=== PATIENT | female | born 1955 | race Caucasian/White ===

== ENCOUNTER 2016-06-13 08:53 | Emergency (ER) | payer OTHER ==
[2016-06-13 09:19] VITALS: BP 139/68; PULSE 78; RESP 20; TEMP 98.3
--- NOTE | 2016-06-13 09:31 | ED ---
Skin/Abscess/FB HPI - General Source: patient, RN notes reviewed Mode of arrival: ambulatory Limitations: no limitations <Rob Nam - Last Filed: 06/13/16 09:31> <Vega Strickland - Last Filed: 06/13/16 17:08> - General Chief complaint: Skin/Abscess/Foreign Body Stated complaint: rash Time Seen by Provider: 06/13/16 09:23 - History of Present Illness Initial comments: 61-year-old female presents emergency Department with chief complaint of rash. Patient states started last few days. Patient states she has left leg, buttocks rash. Patient states is painful, sore. Patient states she's never had shingles. Patient states she is currently on chemotherapy for cancer. Patient states that she's had no new soaps or lotions or detergents. Patient states she's never had any like this in the past. Patient states that she initially thought she had impetigo. Patient admits to having chickenpox in the past. (Rob Nam) - Related Data Previous Rx's Medication Instructions Recorded Cyclobenzaprine [Flexeril] 10 mg PO Q8H PRN #0 tab 10/23/15 Docusate [Colace] 100 mg PO BID cap 10/23/15 Magnesium Hydroxide [Milk of 2,400 mg PO BID PRN #0 ml 10/23/15 Magnesia Concentrate] fentaNYL 25MCG/HR PATCH [Duragesic 1 patch TRANSDERM Q72H patch 10/23/15 25MCG/HR] HYDROcodone/APAP 7.5-325MG [[place] 1 tab PO Q6HR PRN #20 tab 06/13/16 7.5-325] valACYclovir HCL [Valtrex] 1,000 mg PO Q8HR #30 tab 06/13/16 Allergies Allergy/AdvReac Type Severity Reaction Status Date / Time Iodinated Contrast Media - Allergy Unknown Verified 06/13/16 09:19 Oral and Review of Systems ROS Other: All systems not noted in ROS Statement are negative. <Rob Nam - Last Filed: 06/13/16 09:31> ROS Other: All systems not noted in ROS Statement are negative. <Vega Strickland - Last Filed: 06/13/16 17:08> ROS Statement: Those systems with pertinent positive or pertinent negative responses have been documented in the HPI. 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 History of Any Multi-Drug Resistant Organisms: None Reported Past Surgical History: Section, Cholecystectomy Past Anesthesia/Blood Transfusion Reactions: No Reported Reaction Past Psychological History: Anxiety, Depression Smoking Status: Former smoker Past Alcohol Use History: Occasional Past Drug Use History: None Reported - Past Family History Father Family Medical History: Cancer <Rob Nam - Last Filed: 06/13/16 09:31> General Exam Limitations: no limitations General appearance: alert, in no apparent distress Head exam: Present: atraumatic, normocephalic, normal inspection Respiratory exam: Present: normal lung sounds bilaterally. Absent: respiratory distress, wheezes, rales, rhonchi, stridor Cardiovascular Exam: Present: regular rate, normal rhythm, normal heart sounds. Absent: systolic murmur, diastolic murmur, rubs, gallop, clicks Neurological exam: Present: alert, oriented X3, CN II-XII intact Skin exam: Present: warm, dry, intact, normal color, rash (Left buttocks, turning down the left leg there is erythematous vesicular rash noted) <Rob Nam - Last Filed: 06/13/16 09:31> Disposition Time of Disposition: 09:30 <Rob Nam - Last Filed: 06/13/16 09:31> <Vega Strickland - Last Filed: 06/13/16 17:08> Clinical Impression: Herpes zoster Disposition: HOME SELF-CARE Condition: Stable Instructions: Shingles (ED) Additional Instructions: Please return to the Emergency Department if symptoms worsen or any other concerns. Prescriptions: HYDROcodone/APAP 7.5-325MG [[place] 7.5-325] 1 tab PO Q6HR PRN #20 tab PRN Reason: Pain valACYclovir HCL [Valtrex] 1,000 mg PO Q8HR #30 tab Referrals: Brenden Willson MD [Primary Care Provider] - 1-2 days
== END 2016-06-13 09:55 | disposition home or self-care (01) ==
LOC: EC 08:53
DX: B02.9 Zoster without complications (principal); C80.1 Malignant (primary) neoplasm, unspecified; Z79.891 Long term (current) use of opiate analgesic; Z87.891 Personal history of nicotine dependence; Z91.041 Radiographic dye allergy status; Z79.899 Other long term (current) drug therapy
CPT/HCPCS: 99282

== ENCOUNTER → 2016-07-14 | Outpatient (CLI) | payer OTHER ==
--- NOTE | 2016-07-14 13:32 | CT ---
EXAMINATION TYPE: CT ChestAbdPelvis wo con DATE OF EXAM: 07/14/2016 1:16 PM COMPARISON: 04/21/2016 HISTORY: Follow-up lung carcinoma Unenhanced CT of the Chest, Abdomen and Pelvis Unenhanced CT of the chest ,abdomen and pelvis is performed. The lack of intravenous contrast limits evaluation of the solid and hollow viscera. Oral contrast: Yes CT Chest: LUNGS: Right infrahilar mass is unchanged in size and measures approximately 3.1 x 2.0 cm versus 3.1 x 1.9 cm previously. There is resultant endobronchial occlusion with right lower lobe volume loss and small pleural effusion essentially unchanged from prior examination. No new nodule or mass is apprec iated. The left lung remains clear. MEDIASTINUM: Thoracic aorta is of normal caliber. The heart is not enlarged. No evidence for media stinal mass or adenopathy. HILAR STRUCTURES: No evidence for mass. No hilar adenopathy is appreciated. OTHER: Pathologic compression fracture of T11 with bony retropulsion and central stenosis with cord c ompression difficult to exclude. Additional diffuse sclerotic bony metastases essentially unchanged f rom prior examination. CONTRAST CT ABDOMEN AND PELVIS: LIVER/GB: No calcified gallstones. No space occupying hepatic lesion. Biliary tree is of normal ca liber. PANCREAS: No inflammation. No distinct mass. SPLEEN: No splenic enlargement. No lesion seen. ADRENALS: No nodule. No thickening. KIDNEYS/BLADDER: No hydronephrosis. No nephrolithiasis. No disctinct renal mass. BOWEL: Normal appendix. Normal bowel caliber. No inflammation. GENITAL ORGANS: No gross abnormality. LYMPH NODES: No greater than 1cm abdominal or pelvic lymph nodes areappreciated. AORTA: No significant abnormality. OSSEOUS STRUCTURES: No significant abnormality is seen. OTHER: No significant additional abnormality is seen. IMPRESSION: 1. Essentially stable right infrahilar mass with postobstructive changes. 2. Stable sclerotic bony metastases.
== END ==
LOC: RADCTMAIN 12:50
PROVIDERS: ATTEND Internal Medicine Hematology & Oncology
DX: C34.91 Malignant neoplasm of unspecified part of right bronchus or lung (principal); C79.51 Secondary malignant neoplasm of bone
CPT/HCPCS: 71250; 74176

== ENCOUNTER → 2016-11-10 | Outpatient (CLI) | payer OTHER ==
--- NOTE | 2016-11-10 13:16 | CT ---
EXAMINATION TYPE: CT ChestAbdPelvis wo con DATE OF EXAM: 11/10/2016 COMPARISON: July 14, 2016 HISTORY: Lung Cancer CT DLP: 568.5mGycm Unenhanced CT of the Chest, Abdomen and Pelvis Unenhanced CT of the chest ,abdomen and pelvis is performed. The lack of intravenous contrast limits evaluation of the solid and hollow viscera. Oral contrast: Yes CT Chest: LUNGS: Right infrahilar soft tissue mass is again noted and measures approximately 3.6 x 2.7 cm versu s 3.1 x 2.0 cm previously. There is associated right lower lobe volume loss. Small pleural effusion i s identified. No new masses identified at this time. 3 mm pulmonary nodule within the right middle lo be appear new. New nodule right upper lobe measures 2 mm image 27. In the left lung now there are eleonora roximately 8 pulmonary nodules most of which appear to be new all measuring less than 6.5 mm. Metasta tic disease is not excluded. MEDIASTINUM: Thoracic aorta is of normal caliber. The heart is not enl arged. No evidence for mediastinal mass or adenopathy. HILAR STRUCTURES: Fullness of the right hilum is suspicious for adenopathy although the lack of contr ast limits evaluation. OTHER: No significant abnormality. CONTRAST CT ABDOMEN AND PELVIS: LIVER/GB: Cholecystectomy clips are in place. No space occupying hepatic lesion. Biliary tree is of n ormal caliber. PANCREAS: No inflammation. No distinct mass. SPLEEN: No splenic enlargement. No lesion seen. ADRENALS: No nodule. No thickening. KIDNEYS/BLADDER: No hydronephrosis. No nephrolithiasis. No disctinct renal mass. BOWEL: Normal appendix. Normal bowel caliber. No inflammation. GENITAL ORGANS: No gross abnormality. LYMPH NODES: No greater than 1cm abdominal or pelvic lymph nodes areappreciated. AORTA: No significant abnormality. OSSEOUS STRUCTURES: Stable scattered sclerotic metastatic lesions. Stable pathologic compression frac ture of T11. OTHER: No significant additional abnormality is seen. IMPRESSION: 1. Right infrahilar mass with postobstructive change appears slightly larger in the interval. 2. New pulmonary nodules suspicious for metastatic disease. 3. Stable left sclerotic metastatic disease.
== END | disposition home or self-care (01) ==
LOC: RADCTMAIN 12:28
PROVIDERS: ATTEND Internal Medicine Hematology & Oncology
DX: C34.2 Malignant neoplasm of middle lobe, bronchus or lung (principal); C79.51 Secondary malignant neoplasm of bone; Z91.041 Radiographic dye allergy status
CPT/HCPCS: 71250; 74176

== ENCOUNTER → 2017-01-13 | Outpatient (CLI) | payer OTHER ==
--- NOTE | 2017-01-13 08:56 | CT ---
EXAMINATION TYPE: CT ChestAbdPelvis wo con DATE OF EXAM: 01/13/2017 COMPARISON: Previous study dated 11/10/2016 HISTORY: Patient has no complaints at time of study. Follow up study for known lung cancer. CT DLP: 619.6 mGycm Automated exposure control for dose reduction was used. TECHNIQUE: Helical acquisition through the abdomen and pelvis was obtained without oral or intravenou s contrast. The data was formatted in the axial, coronal and sagittal projections. FINDINGS: There is an enlarging right-sided effusion. The patient's right infrahilar mass which previ ously measured 3.6 x 2.7 cm now measures 2.1 x 3.2 x 3.2 cm. This lesion abuts the pleura surface of the right hemidiaphragm. There is some postobstructive pneumonitis. There are stable pulmonary nodule s likely reflecting metastatic disease. Nodule adjacent to the left hilum which previously was measur ed at 4.9 mm today measures 4.4 mm no definite new nodules are seen.. Subpleural nodule in the latera l segment of the left upper lobe which previously measured 4.0 mm today measures 3.2 mm. There is no significant axillary or internal mammary lymph nodes. There are some shotty lymph nodes i n the pretracheal region and in the aortopulmonary window. No definite pathologically enlarged lymph nodes are seen. The heart is enlarged. There is no pericardial fluid. Within the abdomen, the liver is normal in size. No focal hepatic lesions are seen. The gallbladder i s been removed. The spleen is normal. Both adrenal glands appear normal. There is no evidence of hydronephrosis or nephrolithiasis. Limited views of the pancreas are normal. There is no significant retroperitoneal, iliac or inguinal adenopathy. The uterus and ovaries are unremarkable. The bladder is normal. There are scattered diverticula changes in the sigmoid colon. There is no radiographic evidence of di verticulitis. The appendix is not visualized. Small bowel loops are normal in caliber. There is no free fluid and no free air. There are multiple sclerotic metastases essentially unchanged from previous. There is partial collaps e of the T11 vertebral body and this may have progressed slightly. IMPRESSION: 1. SLIGHT IMPROVEMENT IN THE PATIENT'S RIGHT INFRAHILAR MASS. 2. SLIGHT DECREASE IN SIZE OF THE PATIENT'S KNOWN PULMONARY METASTASES. 3. STABLE OSSEOUS METASTASES. THE PATIENT'S COMPRESSION FRACTURE OF T11 MAY HAVE PROGRESSED SLIGHTLY. 4. WORSENING RIGHT-SIDED EFFUSION. 5. UNCOMPLICATED DIVERTICULOSIS OF THE SIGMOID COLON.
== END ==
LOC: RADCTMAIN 08:09
PROVIDERS: ATTEND Internal Medicine Hematology & Oncology
DX: C34.2 Malignant neoplasm of middle lobe, bronchus or lung (principal); C78.00 Secondary malignant neoplasm of unspecified lung; C79.51 Secondary malignant neoplasm of bone; J91.0 Malignant pleural effusion; K57.30 Diverticulosis of large intestine without perforation or abscess without bleeding
CPT/HCPCS: 71250; 74176

== ENCOUNTER 2017-01-26 07:52 | Day surgery (SDC) | payer OTHER ==
[2017-01-26 09:04] VITALS: BP 126/58; PULSE 68; RESP 20; TEMP 98.1
--- NOTE | 2017-01-26 10:42 | US ---
Discontinued thoracentesis HISTORY: Lung cancer, pleural effusion Exam correlated to prior CT 01/13/2017 Ultrasound images show only minimal pleural effusion. Following discussion with the patient, patient has elected not to undergo thoracentesis at this time.
== END 2017-01-26 09:30 | disposition home or self-care (01) ==
LOC: RADPROMAIN 07:52
PROVIDERS: ATTEND Internal Medicine Hematology & Oncology
DX: J90 Pleural effusion, not elsewhere classified (principal); C34.90 Malignant neoplasm of unspecified part of unspecified bronchus or lung; Z53.8 Procedure and treatment not carried out for other reasons
CPT/HCPCS: 36415; 76604

== ENCOUNTER → 2017-03-30 | Outpatient (CLI) | payer OTHER ==
--- NOTE | 2017-03-30 09:25 | CT ---
EXAMINATION TYPE: CT ChestAbdPelvis wo con DATE OF EXAM: 03/30/2017 COMPARISON: 01/13/2017 HISTORY: Follow up to lung CA CT DLP: 594.1 mGycm. Automated Exposure Control for Dose Reduction was Utilized. TECHNIQUE: CT scan of the thorax, abdomen and pelvis is performed without IV contrast. FINDINGS: LUNGS: There is a stable right-sided effusion. The patient's right infrahilar mass now measures 2.1 x 3.2 x 3.2 cm. And is stable This lesion abuts the pleura surface of the right hemidiaphragm. There is some postobstructive pneumonitis. There again noted to be multiple small pulmonary nodules the largest measuring approximately 4 mm lef t lower lobe lateral segment. There does appear to be some interval improvement in a couple of the no dules previously noted within the lingular segment of the left upper lobe posteriorly which are marke dly reduced in size and not definitively seen on today's exam. Subpleural nodularity in the left uppe r lobe is stable MEDIASTINUM: Assessment for adenopathy limited by the lack of contrast. OTHER: Multiple osseous lesions again noted with a compression fracture mid thoracic region which eleonora ears result in severe canal stenosis and compression thecal sac. Involvement of the rib cage again no fiona. Involvement of the sternum also noted. Involvement of the sacrum also noted. Involvement of the left acetabulum stable. Calcification within the left breast LIVER/GB: No significant abnormality is appreciated. PANCREAS: No significant abnormality is seen. SPLEEN: No significant abnormality is seen. ADRENALS: No significant abnormality is seen. KIDNEYS: No significant abnormality is seen. BOWEL: Diverticulosis of the colon noted. LYMPH NODES: No greater than 1cm abdominal or pelvic lymph nodes are appreciated. OSSEOUS STRUCTURES: No significant abnormality is seen. IMPRESSION: 1. Stable right infrahilar mass with associated postobstructive consolidation and small effusion. 2. Interval improvement in the size and number of pulmonary nodules within the left lung, which are n ot clearly seen on today's exam and previously measured 3 to 4 mm. 3. Osseous metastases is stable with a severe compression fracture of the thoracic region with severe canal stenosis and thecal sac constriction suspected. Recommend MRI follow-up.
== END | disposition home or self-care (01) ==
LOC: RADCTMAIN 08:39
PROVIDERS: ATTEND Internal Medicine Hematology & Oncology
DX: C34.2 Malignant neoplasm of middle lobe, bronchus or lung (principal); C79.51 Secondary malignant neoplasm of bone; J98.4 Other disorders of lung; J90 Pleural effusion, not elsewhere classified
CPT/HCPCS: 71250; 74176

== ENCOUNTER → 2017-05-27 | Outpatient (CLI) | payer OTHER ==
--- NOTE | 2017-05-27 15:02 | CT ---
EXAMINATION TYPE: CT ChestAbdPelvis wo con DATE OF EXAM: 05/27/2017 COMPARISON: Prior exam 03/30/2017 HISTORY: Lung CA follow up CT DLP: 1605 mGycm. Automated Exposure Control for Dose Reduction was Utilized. TECHNIQUE: CT scan of the thorax, abdomen and pelvis is performed without IV contrast. FINDINGS: LUNGS: Persistent abnormal density present in the right lower lobe. Lesion is somewhat amorphous, lac k of contrast makes direct measurement somewhat difficult to perform accurately. There may be small a ssociated effusion or pleural reaction. MEDIASTINUM: There are no greater than 1 cm hilar or mediastinal lymph nodes. No pericardial effusi on is seen. OTHER: Lack of contrast could compromise sensitivity. LIVER/GB: No significant abnormality is appreciated. PANCREAS: No significant abnormality is seen. SPLEEN: No significant abnormality is seen. ADRENALS: No significant abnormality is seen. KIDNEYS: No significant abnormality is seen. BOWEL: No significant abnormality is seen. GENITAL ORGANS: No gross abnormality seen. LYMPH NODES: No greater than 1cm abdominal or pelvic lymph nodes are appreciated. OSSEOUS STRUCTURES: No significant interval change, sclerotic bone metastases. OTHER: No significant additional abnormality is seen. IMPRESSION: There is no significant interval change compared to prior exam. Limitations as described.
== END ==
LOC: RADCTMAIN 13:24
PROVIDERS: ATTEND Internal Medicine Hematology & Oncology
DX: C34.2 Malignant neoplasm of middle lobe, bronchus or lung (principal)
CPT/HCPCS: 71250; 74176

== ENCOUNTER → 2017-09-15 | Outpatient (CLI) | payer OTHER ==
--- NOTE | 2017-09-15 10:20 | CT ---
EXAMINATION TYPE: CT ChestAbdPelvis wo con DATE OF EXAM: 09/15/2017 COMPARISON: 05/27/2017 HISTORY: Lung cancer, suspect mets CT DLP: 708.1 mGycm. Automated Exposure Control for Dose Reduction was Utilized. TECHNIQUE: CT scan of the thorax, abdomen and pelvis is performed without IV contrast. FINDINGS: LUNGS: Persistent abnormal density present in the right lower lobe. Lesion is somewhat amorphous, lac k of contrast makes direct measurement somewhat difficult to perform accurately. There may be small a ssociated effusion or pleural reaction. Now measures 2.1 x 3.2 x 3.2 cm and is stable. This lesion ab uts the pleura surface of the right hemidiaphragm. MEDIASTINUM: Lack of contrast limits assessment for adenopathy. Fullness to the right hilum is stable . Coronary artery calcification noted in the heart size is stable. LIVER/GB: Cholecystectomy changes.. PANCREAS: No significant abnormality is seen. SPLEEN: No significant abnormality is seen. ADRENALS: No significant abnormality is seen. KIDNEYS: No significant abnormality is seen. BOWEL: No significant abnormality is seen. LYMPH NODES: No greater than 1cm abdominal or pelvic lymph nodes are appreciated. OSSEOUS STRUCTURES: No significant interval change, sclerotic bone metastases are stable involving th e pelvis, vertebral column, sternum and rib cage OTHER: No significant additional abnormality is seen. IMPRESSION: 1. Stable pleural-parenchymal changes involving the right lung with persistent infrahilar soft tissue prominence unchanged in size from the prior exam. 2. Stable diffuse osseous metastases. Compression fracture in the midthoracic vertebral body appears stable there does appear to be significant canal stenosis and I could not exclude a degree of spinal cord compression. This is stable. Correlate with MRI as clinically warranted. A Yellow level critical message alert has been initiated for Tony Alarcon MD via the [employer] on 09/15/2017 10:18 AM. This message alert has been sent to Tony Alarcon MD via th e preferences provided by the clinician for the receipt of Radiology Critical Findings. Message ID [id number].
== END ==
LOC: RADCTMAIN 09:19
PROVIDERS: ATTEND Internal Medicine Hematology & Oncology
DX: C34.2 Malignant neoplasm of middle lobe, bronchus or lung (principal); C79.51 Secondary malignant neoplasm of bone; M84.48XA Pathological fracture, other site, initial encounter for fracture
CPT/HCPCS: 71250; 74176

== ENCOUNTER → 2017-10-31 | Outpatient (CLI) | payer OTHER ==
--- NOTE | 2017-10-31 23:37 | MR ---
EXAMINATION TYPE: MR thoracic spine wo/w con DATE OF EXAM: 10/31/2017 COMPARISON: NONE HISTORY: Thoracic compression fracture CONTRAST: Standard multiplanar, multisequence MRI departmental protocol utilizing 10 mL intravenous gadolinium contrast. FINDINGS: The thoracic vertebra have fairly normal alignment. There is posterior disc herniation with endplate spur formation at C5-6 C6-7 with encroachment on the spinal canal. There is some edema in t he cord. Canal is narrowed to 5 to 6 mm. Thoracic spinal cord has normal signal pattern without edema. There is depression of the superior end plate of T9 vertebra without significant loss of height. There is T11 compression deformity of 25% wi th decreased signal in the vertebral body. There is expansion of T11 vertebra into the spinal canal o n the right side. There is very slight enhancement of the T11 vertebral body with contrast. There is abnormal decreased signal on the T1 images are also extending into the pedicle and the facets of T11 on the right side. IMPRESSION: There is spinal stenosis due to disc herniation posteriorly at C5-6 C6-7 with edema in the cord and m yelomalacia. Depression of the superior endplate of T9 without significant loss of height. This appears old. There is T11 compression fracture with expansion into the spinal canal to some extent on the right si de. There is also involvement of the pedicle the possibility of a neoplastic process should be consid ered. There is some progression of the compression deformity at T11 compared to the MR scan of 10/17/19 16. This is not an aggressive lesion since there is not a significant progression compared to the old exam from 2 years ago.
== END | disposition home or self-care (01) ==
LOC: RADMRIMAIN 16:13
PROVIDERS: ATTEND Internal Medicine Hematology & Oncology
DX: M48.54XA Collapsed vertebra, not elsewhere classified, thoracic region, initial encounter for fracture (principal)
CPT/HCPCS: 72157; A9581

== ENCOUNTER → 2017-12-02 | Outpatient (CLI) | payer OTHER ==
--- NOTE | 2017-12-02 13:46 | MR ---
EXAMINATION TYPE: MR cervical spine wo con DATE OF EXAM: 12/02/2017 COMPARISON: HISTORY: Neck/Shoulder pain into left arm and fingers TECHNIQUE: Multiplanar, multisequence images of the cervical spine were acquired. C2-C3: Posterior broad-based disc bulge causes minimal anterior mass effect on the thecal sac. No magi tral stenosis or foraminal encroachment. C3-C4: Small central posterior disc bulge causes mild anterior mass effect on the thecal sac. No sign ificant central stenosis. Some mild foraminal encroachment due to uncovertebral joint hypertrophy and facet arthropathy. C4-C5: Left posterior paracentral extension endplate disc complex causes foraminal encroachment, ther e is a right paracentral posterior disc herniation extending posterior to the C5 vertebral body, ther e is encroachment towards the right neural foramen, anterolateral mass effect on the thecal sac. C5-C6: Posterior extension of endplate disc complex contacts the anterior cervical cord, mild to mode rate central stenosis. Lateral extension endplate disc complex causes bilateral foraminal encroachmen t. C6-C7: Posterior extension of endplate disc complex extends somewhat laterally and is greater on the right posterior paracentral location and causes moderate to severe central stenosis, there is right-s ided foraminal encroachment greater than left. C7-T1: No evidence for degenerative disc disease. No disc bulge/herniation or protrusion. No Canal stenosis. Foramina are patent bilaterally. Cervical segments are intact. There is normal alignment. Cervical spinal cord is of normal signal. Craniovertebral junction relationships are within normal limits. Cervical vertebral bodies show pre served height. There is multilevel spondylosis with endplate discogenic marrow signal change, loss of disc height signal greatest at C4-5 and C5-6 and C6-7. IMPRESSION: Degenerative disc disease, multilevel foraminal encroachment, spinal stenosis.
== END | disposition home or self-care (01) ==
LOC: RADMRIMAIN 10:22
PROVIDERS: ATTEND Orthopaedic Surgery Orthopaedic Surgery of the Spine
DX: M48.02 Spinal stenosis, cervical region (principal); M50.00 Cervical disc disorder with myelopathy, unspecified cervical region
CPT/HCPCS: 72141

== ENCOUNTER → 2017-12-06 | Outpatient (CLI) | payer OTHER ==
--- NOTE | 2017-12-06 15:33 | CT ---
EXAMINATION TYPE: CT ChestAbdPelvis wo con DATE OF EXAM: 12/06/2017 COMPARISON: 09/15/2017 HISTORY: f/u lung ca CT DLP: 673.9mGycm Unenhanced CT of the Chest, Abdomen and Pelvis Unenhanced CT of the chest ,abdomen and pelvis is performed. The lack of intravenous contrast limits evaluation of the solid and hollow viscera. Oral contrast: None CT Chest: LUNGS: Stable right infrahilar masslike density measuring 4.2 x 3.0 cm. Persistent pleural-parenchyma l density right lower lobe. Obstruction right lower lobe bronchus. Remainder of the lungs are clear. No additional masses or infiltrates seen. Pleural effusion has decreased since prior study. Sliver effusion noted. MEDIASTINUM: Thoracic aorta is of normal caliber. The heart is not enlarged. No evidence for media stinal mass or adenopathy. HILAR STRUCTURES: No evidence for mass. No hilar adenopathy is appreciated. OTHER: No significant abnormality. CONTRAST CT ABDOMEN AND PELVIS: LIVER/GB: Cholecystectomy changes identified. No space occupying hepatic lesion. Biliary tree is of n ormal caliber. PANCREAS: No inflammation. No distinct mass. SPLEEN: No splenic enlargement. No lesion seen. ADRENALS: No nodule. No thickening. KIDNEYS/BLADDER: No hydronephrosis. No nephrolithiasis. No disctinct renal mass. BOWEL: Normal appendix. Rectosigmoid no wall thickening noted. Consider direct visualization. Sigmoid diverticulosis without diverticulitis at this time. GENITAL ORGANS: No gross abnormality. LYMPH NODES: No greater than 1cm abdominal or pelvic lymph nodes are appreciated. AORTA: No significant abnormality. OSSEOUS STRUCTURES: Sclerotic metastatic disease as seen previously. Moderately severe compression fr acture of T11 with bony retropulsion noted and similar narrowing of the spinal canal as noted previou sly. Cord compression not excluded. OTHER: No significant additional abnormality is seen. IMPRESSION: 1. Stable right infrahilar mass with the associated the right lower lobe volume loss and bronchial ob struction. 2. Stable diffuse sclerotic metastatic disease. Compression fracture T11 with cord compression diffic ult to exclude. Overall appearance is similar to prior examination.
== END | disposition home or self-care (01) ==
LOC: RADCTMAIN 14:59
PROVIDERS: ATTEND Internal Medicine Hematology & Oncology
DX: C34.2 Malignant neoplasm of middle lobe, bronchus or lung (principal); C79.51 Secondary malignant neoplasm of bone; J98.09 Other diseases of bronchus, not elsewhere classified; R91.8 Other nonspecific abnormal finding of lung field; Z91.048 Other nonmedicinal substance allergy status
CPT/HCPCS: 71250; 74176

== ENCOUNTER → 2018-02-14 | Outpatient (CLI) | payer OTHER ==
--- NOTE | 2018-02-14 10:25 | CT ---
EXAMINATION TYPE: CT ChestAbdPelvis wo con DATE OF EXAM: 02/14/2018 COMPARISON: 12/06/2017, 09/15/2017, 05/27/2017 HISTORY: 63 year-old female history of lung cancer, observe for mets TECHNIQUE: Contiguous axial scanning of the chest, abdomen, and pelvis without IV contrast. Coronal a nd sagittal reconstructions performed. CT DLP: 760.70 mGycm Automated exposure control for dose reduction was used. FINDINGS: Chest: Heart upper limits of normal in size without pericardial effusion. Very mild reversal calcifications are present. Aorta normal caliber with conventional arch. Arch anatomy and minimal scattered prostatic calcificati ons. Focal calcification left breast and some nodular areas in the right breast are unchanged from 05/27/19 18. Nonenlarged right paratracheal lymph node measures 5 mm. No thoracic lymphadenopathy by CT size crite mary. Mild centrilobular emphysema and mild diffuse bronchial wall thickening. There is stable volume loss and consolidation within the right lower lobe. There may be adjacent smal l pleural effusion also not significantly changed. Estimated size is 4.5 x 3.4 cm versus 4.5 x 3.4 cm on the study immediately prior. Some additional patchy and curvilinear densities extending in the superior segment right lower lobe a re also unchanged probably representing scarring and atelectasis. No new pulmonary nodules or mass is seen. A 5 mm subpleural pulmonary nodule peripheral left base is unchanged back to at least 8. ABDOMEN: Small hiatal hernia. Noncontrast appearance of the liver, adrenal glands, spleen, kidneys, pancreas appear within normal l imits. No mesenteric or retroperitoneal lymphadenopathy. Cholecystectomy clips are present. No dilated small bowel, free fluid, or free air. Scattered mild colonic diverticulosis. No pericoloni c inflammatory change. Pelvis: Bladder nondistended. Uterus and small ovaries are visualized. No abnormal fluid collection in the pe lvis or pelvic lymphadenopathy. Bones: Stable sclerotic osseous lesions throughout involving the sternum, spine, sacrum, and left pelvic bon e. Overall stable T11 vertebral compression deformity with sclerosis extending off towards the right sided posterior elements and similar spinal canal stenosis here, possibly severe spinal canal stenosi s. IMPRESSION: 1. Chronic consolidation and volume loss within the right lower lobe likely site of treated disease. No significant change back to at least 05/27/2017. There may be a small adjacent pleural effusion or p leural reaction which has gradually decreased from 05/27/2017. 2. Diffuse sclerotic osseous metastases are unchanged. Mild compression deformity of T11 is stable wi th possible severe spinal canal stenosis at this level. 3. No evidence for new or progressive disease at this time. 4. COPD with mild emphysema, small hiatal hernia, and mild colonic diverticulosis.
== END | disposition home or self-care (01) ==
LOC: RADCTMAIN 09:22
PROVIDERS: ATTEND Internal Medicine Hematology & Oncology
DX: C34.2 Malignant neoplasm of middle lobe, bronchus or lung (principal); C79.51 Secondary malignant neoplasm of bone; J43.9 Emphysema, unspecified; K57.30 Diverticulosis of large intestine without perforation or abscess without bleeding
CPT/HCPCS: 71250; 74176

== ENCOUNTER → 2018-05-17 | Outpatient (CLI) | payer OTHER ==
--- NOTE | 2018-05-17 16:05 | CT ---
EXAMINATION TYPE: CT ChestAbdPelvis wo con DATE OF EXAM: 05/17/2018 COMPARISON: 02/14/2018 and 12/06/2017 HISTORY: Follow up to lung CA CT DLP: 1292 mGycm. Automated Exposure Control for Dose Reduction was Utilized. TECHNIQUE: CT scan of the thorax, abdomen and pelvis is performed without IV contrast. FINDINGS: LUNGS: Again there is a 5 mm pulmonary nodule at the left lung base on series 4 image 46 that is vesta d in nature unchanged dating back to 05/27/2017. Diaphragmatic rent is seen with small Bochdalek herni a. Mild centrilobular emphysematous changes redemonstrated. There is redemonstration of a right basilar consolidation estimated to measure approximately 3.5 x 4. 3 cm, similar to the prior where it measured 3.4 x 4.5 cm. Again there is subsegmental endobronchial occlusion within this consolidation. Right hemithorax volume loss with right hemidiaphragm elevation is again noted. Trace right pleural effusion is similar to the prior. MEDIASTINUM: Again there is no evidence of mediastinal adenopathy. Mild degree coronary artery calcif ications are seen. Small hiatal hernia is present in the posterior mediastinum. Heart is not enlarged . LIVER/GB: Unremarkable unenhanced morphology of the liver. Gallbladder is surgically absent. PANCREAS: No significant abnormality is seen. No ductal dilatation. SPLEEN: No significant abnormality is seen. ADRENALS: No significant abnormality is seen. KIDNEYS: No hydronephrosis nor nephrolithiasis. BOWEL: Few scattered colonic diverticula are again noted. No pericolonic fat stranding. No dilated la rge or small bowel. GENITAL ORGANS: No gross abnormality seen. LYMPH NODES: No greater than 1cm abdominal or pelvic lymph nodes are appreciated. OSSEOUS STRUCTURES: There is sclerosis of the sternal body with areas of lucency that is similar to t he prior exam measuring up to 5 cm in craniocaudal dimension. Metastatic sclerosis is also seen of th e S1 vertebral body, L4 vertebral body, T11 vertebral body, and T9 vertebral body. There is compressi on deformity of the T11 vertebral body with slight retropulsion resulting in moderate to severe spina l canal stenosis at this level as seen on the prior. Stable sclerotic metastasis is also seen within the pelvis including the sacrum and left iliac bone OTHER: Moderate atherosclerosis is seen of the abdominal aorta and its branches. IMPRESSION: 1. Persistent right infrahilar consolidation likely on the basis of posttreatment change given its lo ng-term stability dating back to at least 05/27/2017 in addition to the left basilar stable pulmonary nodule measuring 5 mm. 2. Stable multifocal osteoblastic metastasis. No new evidence of visceral metastasis or new foci of o sseous metastasis within the chest, abdomen, or pelvis on this unenhanced CT.
== END | disposition home or self-care (01) ==
LOC: RADCTMAIN 12:38
PROVIDERS: ATTEND Internal Medicine Hematology & Oncology
DX: C79.51 Secondary malignant neoplasm of bone (principal); C34.2 Malignant neoplasm of middle lobe, bronchus or lung
CPT/HCPCS: 71250; 74176

== ENCOUNTER → 2018-11-14 | Outpatient (CLI) | payer OTHER ==
--- NOTE | 2018-11-15 15:26 | CT ---
EXAMINATION TYPE: CT ChestAbdPelvis wo con DATE OF EXAM: 11/14/2018 COMPARISON: HISTORY: f/u lung ca CT DLP: 805.7 mGycm. Automated Exposure Control for Dose Reduction was Utilized. TECHNIQUE: CT scan of the thorax, abdomen and pelvis is performed without IV contrast. FINDINGS: LUNGS: Stable questionable 4 mm pulmonary nodule in the medial right upper lobe versus ectatic pulmon julissa vessel. This does appear to be a new finding from the prior of 05/17/2018. Elevation of the right h emidiaphragm is again noted. Left basilar 5 mm pulmonary nodule on series 4 image 46 is unchanged. Th is is unchanged dating back to 05/27/2017. No new suspicious pulmonary nodules. Right basilar airspace disease remains unchanged and may represent atelectasis given the right hemidiaphragm elevation. End obronchial occlusion is again noted within this consolidation. Underlying neoplasm is not entirely ex cluded. A diaphragmatic rent and Bochdalek hernia are again noted. Minimal centrilobular emphysematou s changes are redemonstrated. MEDIASTINUM: There are no greater than 1 cm hilar or mediastinal lymph nodes. No pericardial effusi on is seen. Mild coronary calcifications. OTHER: Contrast is noted throughout the esophagus that could relate to gastroesophageal reflux or del ayed propulsion. LIVER/GB: Unenhanced liver demonstrates a normal morphology. Gallbladder is surgically absent. PANCREAS: No significant abnormality is seen. SPLEEN: No significant abnormality is seen. ADRENALS: No nodules or thickening. KIDNEYS: Unenhanced kidneys demonstrate no evidence of hydronephrosis or nephrolithiasis. BOWEL: There are a few scattered colonic diverticula without pericolonic fat stranding. No dilated la rge or small bowel. GENITAL ORGANS: No gross abnormality seen. LYMPH NODES: No greater than 1cm abdominal or pelvic lymph nodes are appreciated. OSSEOUS STRUCTURES: There is redemonstration of osseous metastasis with sternal sclerotic lesion, pat hologic compression deformity of T11, sclerotic metastasis of T9, T12, L4, and S1, and sclerotic meta stasis within the iliac bone on the left no new suspicious osseous lesion is seen. Osseous metastasis appear overall stable. OTHER: Moderate atherosclerosis of the abdominal aorta and its branches are noted. IMPRESSION: 1. Redemonstration of chronic right infrahilar opacity and subsequent right hemidiaphragm elevation. This may be on the basis of posttreatment change. PET/CT could be utilized for surveillance as clinic ally indicated. 2. Questionable new right upper lobe pulmonary nodule versus ectatic the vessel. Attention on follow- up exam is recommended. If the patient can receive contrast examination with contrast would be recomm ended on the follow-up CT. Additional left basilar pulmonary nodule is stable back to 05/27/2017. 3. Continued stability of the multifocal osteoblastic metastasis.
== END | disposition home or self-care (01) ==
LOC: RADCTMAIN 16:11
PROVIDERS: ATTEND Internal Medicine Hematology & Oncology
DX: C79.51 Secondary malignant neoplasm of bone (principal); C34.2 Malignant neoplasm of middle lobe, bronchus or lung; Z88.3 Allergy status to other anti-infective agents
CPT/HCPCS: 71250; 74176

== ENCOUNTER → 2019-02-12 | Outpatient (CLI) | payer OTHER ==
--- NOTE | 2019-02-13 04:55 | CT ---
EXAMINATION TYPE: CT ChestAbdPelvis wo con DATE OF EXAM: 02/12/2019 COMPARISON: 11/14/2018, 08/07/2018, and 05/17/2018 HISTORY: 64-year-old female Lung CA TECHNIQUE: Contiguous axial scanning of the chest, abdomen, and pelvis without IV contrast. Coronal a nd sagittal reconstructions performed. CT DLP: 861.3 mGycm Automated exposure control for dose reduction was used. FINDINGS: Chest: Heart normal size without pericardial effusion. Scattered mild coronary vessel calcifications are pre sent. Aorta normal caliber with a conventional arch vessel branching anatomy. No thoracic lymphadenopathy by CT size criteria. However, lack of IV contrast limits assessment of th e hilar structures. There seems to be persistent volume loss in the right middle lobe and attenuation of the bronchus bas elia and segmental right lower lobe bronchi with associated volume loss and consolidation, relatively similar to 08/07/2018. Secondary elevation of the right hemidiaphragm unchanged. 4 mm left mid lung pulmonary nodule axial image 28 is unchanged as is a 5 mm peripheral left basilar pulmonary nodule, axial image 49. ABDOMEN: Tiny hiatal hernia. Noncontrast appearance of the liver shows an enlarging segment 6/7 central right liver lobe lesion cu rrently measuring 3.5 cm, new from 05/17/2018. This is only subtly apparent in retrospect on the prior 11/14/2018 noncontrast study where it is estimated at 2.5 cm. Cholecystectomy clips. Noncontrast appearance of the adrenal glands, kidneys, spleen, and pancreas appear within normal limi ts. Circumaortic left renal vein. Mild atherosclerotic calcifications infrarenal abdominal aorta and lesly c arteries. No dilated small bowel, free fluid, or free air. No mesenteric or retroperitoneal lymphadenopathy. Normal appendix. Scattered mild stool. Oral contrast extending distally to the rectum. No pericolonic inflammatory change. Pelvis: Bladder nondistended. Uterus anteverted. Small bilateral ovaries are seen. No abnormal fluid collecti on in the pelvis or pelvic lymphadenopathy. Bones: Mild degenerative change at the hips. Osteosclerosis anterior left acetabulum, bilateral sacrum, left L4 vertebral body, T11, T9, sternum, and scattered to involve a few ribs is unchanged. Mild compress ion injury of T11 is unchanged from 11/14/2018 with moderate retropulsion into the spinal canal. IMPRESSION: 1. STABLE RIGHT INFRAHILAR DENSITY WITH VOLUME LOSS IN THE RIGHT MIDDLE LOBE, ATTENUATION OF THE BRON CHUS BASALIS AND SEGMENTAL RIGHT LOWER LOBE BRONCHI WITH ASSOCIATED VOLUME LOSS AND CONSOLIDATION. NO TE THAT THE LACK OF IV CONTRAST LIMITS THE EVALUATION. 2. A 3.5 CM RIGHT LIVER LOBE LESION IS NEW FROM 05/17/2018 AND IN RETROSPECT, IS SUBTLY APPARENT ON THE 11/14/2018 EXAM MEASURING 2.5 CM. FINDINGS HIGHLY SUGGESTIVE OF A SOLITARY HEPATIC METASTASIS. 3. STABLE OSTEOSCLEROTIC METASTASES. ASSOCIATED MILD VERTEBRAL COMPRESSION DEFORMITY OF T11 WITH MODE RATE RETROPULSION INTO THE SPINAL CANAL IS ALSO UNCHANGED.
== END | disposition home or self-care (01) ==
LOC: RADCTMAIN 12:10
PROVIDERS: ATTEND Internal Medicine Hematology & Oncology
DX: C34.2 Malignant neoplasm of middle lobe, bronchus or lung (principal); C79.51 Secondary malignant neoplasm of bone; K76.9 Liver disease, unspecified; Z91.041 Radiographic dye allergy status
CPT/HCPCS: 71250; 74176

== ENCOUNTER → 2019-02-28 | Outpatient (CLI) | payer OTHER ==
--- NOTE | 2019-02-28 21:35 | MR ---
EXAMINATION TYPE: MR liver wo/w con DATE OF EXAM: 02/28/2019 COMPARISON: HISTORY: Lung Ca, Liver mass CONTRAST: Standard multiplanar, multisequence MRI departmental protocol utilizing 7.5 mL intravenous Gadavist g adolinium contrast. FINDINGS: On the T2 weighted images there is a discrete rounded 3.7 cm high signal mass in the posterior right lobe of the liver near the julia hepatis. The delayed contrast images with contrast show mild enhance ment without peripheral nodularity. The lesion has relatively low signal on the precontrast images. No other liver lesion is seen. There is a 1.5 cm cyst in the superior aspect of the spleen. Kidneys have normal size. There is no hydronephrosis. There is no evidence of an adrenal mass. There is no evidence of pancreatic mass. Pancreatic duct has normal size. The bile ducts are not dilated. T here is no sign of ascites. There is some infiltrate and atelectasis right lung base. IMPRESSION: Sharply marginated rounded lesion in the liver could relate to a focal nodular hyperplasia. Metastati c disease not entirely excluded. The radiographic features suggest a more benign etiology with sharp margins, rounded shape and mild enhancement. A solitary focus of metastatic disease in the liver is n evertheless still a consideration.
== END ==
LOC: RADMRIMAIN 19:28
PROVIDERS: ATTEND Internal Medicine Hematology & Oncology
DX: C34.2 Malignant neoplasm of middle lobe, bronchus or lung (principal); K76.9 Liver disease, unspecified
CPT/HCPCS: 74183; A9585

== ENCOUNTER → 2019-04-25 | Outpatient (CLI) | payer OTHER ==
--- NOTE | 2019-04-25 14:29 | CT ---
EXAMINATION TYPE: CT ChestAbdPelvis wo con DATE OF EXAM: 04/25/2019 COMPARISON: 02/12/2019 HISTORY: Lung Cancer CT DLP: 1558mGycm Unenhanced CT of the Chest, Abdomen and Pelvis Unenhanced CT of the chest ,abdomen and pelvis is performed. The lack of intravenous contrast limits evaluation of the solid and hollow viscera. Oral contrast: Yes CT Chest: LUNGS: Soft tissue attenuation right lower lobe posteriorly persists measuring 3.2 x 3.5 cm versus 3. 8 x 2.9 cm previously. This may reflect of volume loss or atelectatic tissue however given the lack o f contrast I cannot exclude mass. There is additional pleural thickening and volume loss noted within the right lower lobe and right middle lobe overall unchanged from prior study. Chronic elevation rig ht hemidiaphragm. The lungs are otherwise clear. MEDIASTINUM: Thoracic aorta is of normal caliber. The heart is not enlarged. No evidence for media stinal mass or adenopathy. HILAR STRUCTURES: No evidence for mass. No hilar adenopathy is appreciated. OTHER: No significant abnormality. CONTRAST CT ABDOMEN AND PELVIS: LIVER/GB: Enlarging mass medial aspect anterior segment right hepatic lobe measuring about 5 cm great est dimension versus 3.5 cm previously. Additional lesion within the caudate measuring 2.1 cm. Additi onal hepatic lesions are seen with certainty on this unenhanced study. Cholecystectomy clips are in p lace. PANCREAS: No inflammation. No distinct mass. SPLEEN: No splenic enlargement. No lesion seen. ADRENALS: No nodule. No thickening. KIDNEYS/BLADDER: No hydronephrosis. No nephrolithiasis. No disctinct renal mass. BOWEL: Normal appendix. Normal bowel caliber. No inflammation. GENITAL ORGANS: No gross abnormality. LYMPH NODES: No greater than 1cm abdominal or pelvic lymph nodes areappreciated. AORTA: No significant abnormality. OSSEOUS STRUCTURES: Sclerotic bony metastatic disease. Loss of vertebral body height greatest at T11. Bony retropulsion redemonstrated. OTHER: No significant additional abnormality is seen. IMPRESSION: 1. Stable appearance of the right lung base and volume loss and soft tissue attenuation seen. The fin dings may reflect atelectatic tissue however the lack of contrast limits evaluation. 2. Enlarging dominant hepatic mass anterior segment right hepatic lobe as well as what appears to be new lesion within the caudate lobe. Suspect metastatic disease. 3. Bony metastases redemonstrated. Severe loss of height involving the T11 vertebral segment with bon y retropulsion redemonstrated.
== END | disposition home or self-care (01) ==
LOC: RADCTMAIN 13:31
PROVIDERS: ATTEND Internal Medicine Hematology & Oncology
DX: R16.0 Hepatomegaly, not elsewhere classified (principal); J98.4 Other disorders of lung; M79.89 Other specified soft tissue disorders; Z88.1 Allergy status to other antibiotic agents
CPT/HCPCS: 71250; 74176

== ENCOUNTER → 2019-10-01 | Outpatient (CLI) | payer BC ==
--- NOTE | 2019-10-01 12:34 | CT ---
EXAMINATION TYPE: CT ChestAbdPelvis wo con DATE OF EXAM: 10/01/2019 COMPARISON: 07/05/2019 and 04/25/2019 HISTORY: Lung cancer. CT DLP: 773.5 mGycm. Automated Exposure Control for Dose Reduction was Utilized. TECHNIQUE: CT scan of the thorax, abdomen and pelvis is performed without IV contrast. FINDINGS: Lack of intravenous and oral contrast limit evaluation of both the hollow and solid viscera . LUNGS: There is slight interval growth of the previously seen pulmonary nodules and numerous new subc entimeter pulmonary nodules, the largest of which are marked on the images in the largest left pulmon julissa nodule measures 7 mm series 4 image 20 as opposed to 5 mm on the prior. The right infrahilar cons olidation is difficult to delineate without contrast but overall appears similar in thickness to the prior of 07/05/2019. There is narrowing and subsequent obstruction of the right lower lobe segmental a nd subsegmental bronchi. Trace right pleural effusion is present. MEDIASTINUM: There are no greater than 1 cm hilar or mediastinal lymph nodes. No pericardial effusi on is seen. Mild coronary artery calcifications. OTHER: There is a small hiatal hernia and contrast seen in the distal esophagus as well as in the mid thoracic esophagus that may relate to decreased propulsion or gastroesophageal reflux. LIVER/GB: Unenhanced liver Evaluation of hepatic masses difficult however the largest hepatic lesion in the inferior posterior m edial right hepatic lobe is similar in size measuring approximately 5.4 cm with other smaller ill-def ined hepatic lesions appearing relatively similar to the prior. Gallbladder surgically absent. Right hemidiaphragm elevation is seen with elevation of the liver due to a component of atelectasis within the right lower lobe consolidation. PANCREAS: No significant abnormality is seen. SPLEEN: No splenomegaly. ADRENALS: No new nodularity or thickening. KIDNEYS: Incidentally noted circumaortic left renal vein. BOWEL: There are a few scattered colonic diverticula without pericolonic fat stranding. No dilated la rge or small bowel. Appendix is unremarkable. LYMPH NODES: No greater than 1cm abdominal or pelvic lymph nodes are appreciated. OSSEOUS STRUCTURES: There is redemonstration of osteoblastic metastatic disease of the sacrum, left a cetabulum, L4, T11 with retropulsion, T9, T6, scattered ribs, and the sternum. Osteoblastic lesions a ppear similar. Osteosclerosis anterior left acetabulum, bilateral sacrum, left L4 vertebral body, T11 , T9, sternum, and scattered to involve a few ribs is unchanged. Mild compression injury of T11 is un changed from 11/14/2018 with moderate retropulsion into the spinal canal. IMPRESSION: Progression of disease with numerous new punctate bilateral pulmonary nodules. Multifocal hepatic met astasis is overall similar to the prior. Similar multifocal osteoblastic metastatic disease. Right ba silar consolidation is overall similar to the prior.
== END | disposition home or self-care (01) ==
LOC: RADCTMAIN 11:51
PROVIDERS: ATTEND Internal Medicine Hematology & Oncology
DX: C78.7 Secondary malignant neoplasm of liver and intrahepatic bile duct (principal); C79.51 Secondary malignant neoplasm of bone; C34.2 Malignant neoplasm of middle lobe, bronchus or lung; Z88.5 Allergy status to narcotic agent; Z91.041 Radiographic dye allergy status
CPT/HCPCS: 71250; 74176

== ENCOUNTER → 2019-11-02 | Outpatient (CLI) | payer BC, OTHER ==
--- NOTE | 2019-11-05 10:32 | PE ---
EXAMINATION TYPE: PET CT fusion skull to thigh DATE OF EXAM: 11/02/2019 COMPARISON: Chest CT 10/01/2019 Prior PET/CT: None at this location HISTORY: Lung cancer TECHNIQUE: Following the intravenous administration of 11.98 mCi of F-18 FDG, whole body images are performed from the skull base to the midthigh. Images are reviewed on the computer in the coronal, a xial, and sagittal planes. Reconstructed rotating images are created on independent workstation and reviewed on the computer. A localization and attenuation correction CT is performed in conjunction with the PET scan. DLP: 457.78 mGycm SCAN: Initial Blood glucose: 117 mg/dL Average Mediastinum SUV: 1.65 Average Liver SUV: 2.34 FINDINGS: NECK: There is mild hyperintensity within the left tonsillar pillar with an SUV value 4.09. THORAX: There is mild uptake within the right infrahilar region with an SUV value of 2.91. This could be inflammatory in nature. Neoplasm however remains within the differential. There may be some faint radiotracer within the left hilar region. PET image 94 with an SUV value 2.65 . Multiple pulmonary nodules are present. Some event marketing representative nodule measurements include a posterior l ateral left lower lobe nodule with an SUV value of 0.66. Image 115. A left peripheral nodule with an SUV value of 0.57, image 89. A larger nodule in the posterior medial left upper lung field image 85, SUV value 1.1. A peripheral right upper lobe nodule with an SUV value of 0.62 image 84. Left upper lo be nodule image 76 SUV value 0.66. Left apical nodules image 68 SUV value 0.9. ABDOMEN: There is a suspicious ring lesion within the posterior medial right lobe liver with an SUV v alue of 4.49 suspicious for hepatic metastasis. Couple of focal areas of uptake within the mid cortex of the left kidney are present. This could be r elated to excretion. Neoplasm is not excluded. SUV values 4.67 anteriorly and 5.29 posteriorly. PET i mage 144 PELVIS: Nonspecific uptake is within loops of bowel which may be normal. OSSEOUS STRUCTURES: No abnormal uptake LOCALIZATION CT: There may be slight fullness of the left tonsillar pillar. Direct visualization is r ecommended. Multiple pulmonary nodules are again evident. There appears to be narrowing of the right lower lobe bronchus with consolidation surrounding. This appears more extensive than knee uptake on t he PET scan. Liver lesion is hypodense. COMPARISON: Consolidation may be slightly larger than the recent comparison of 10/01/2019 CT chest. Li soumya lesion appears similar. IMPRESSION: 1. Hyperintense liver lesion compatible with a metastatic lesion. 2. Mild uptake within the right infrahilar consolidation. Differential includes both neoplasm and inf lammatory changes. 3. Significant uptake within the identified pulmonary nodules not evident. This may be related to les s metabolic activity, developing increasing pulmonary nodules should still be considered suspicious. 4. Couple of hyperintense areas of uptake within the left renal cortex most likely related to excreti on. Consider monitoring of the left kidney.
== END | disposition home or self-care (01) ==
LOC: RADPETMAIN 11:44
PROVIDERS: ATTEND Internal Medicine Hematology & Oncology
DX: K76.9 Liver disease, unspecified (principal); C34.2 Malignant neoplasm of middle lobe, bronchus or lung
CPT/HCPCS: 78815; A9552

== ENCOUNTER → 2019-12-31 | Outpatient (CLI) | payer BC ==
--- NOTE | 2019-12-31 09:03 | CT ---
EXAMINATION TYPE: CT ChestAbdPelvis wo con DATE OF EXAM: 12/31/2019 COMPARISON: 10/01/2019 HISTORY: follow up lung cancer CT DLP: 537.7mGycm Unenhanced CT of the Chest, Abdomen and Pelvis Unenhanced CT of the chest ,abdomen and pelvis is performed. The lack of intravenous contrast limits evaluation of the solid and hollow viscera. Oral contrast: Yes CT Chest: LUNGS: Increase in innumerable bilateral pulmonary nodules. Size of the nodules is also increased wit h the largest nodule left lower lobe at 1.3 cm whereas previously the largest nodule is less than 1 c m. There is pulmonary mass like density right infrahilar region redemonstrated. This now measures 4.2 x 3.7 cm versus 3.2 cm previously. There is small right-sided pleural effusion and pleural nodularit y redemonstrated. MEDIASTINUM: Thoracic aorta is of normal caliber. The heart is not enlarged. No evidence for media stinal mass or adenopathy. HILAR STRUCTURES: No evidence for mass. No hilar adenopathy is appreciated. OTHER: No significant abnormality. CONTRAST CT ABDOMEN AND PELVIS: LIVER/GB: Infiltrative mass density right hepatic lobe is again noted and has enlarged and currently measures 7.4 x 4.6 cm versus 5.4 cm. Adjacent poorly characterized nodularity noted. Cholecystectomy clips are redemonstrated. PANCREAS: No inflammation. No distinct mass. SPLEEN: No splenic enlargement. No lesion seen. ADRENALS: No nodule. No thickening. KIDNEYS/BLADDER: No hydronephrosis. No nephrolithiasis. No distinct renal mass. BOWEL: Normal appendix. Normal bowel caliber. No inflammation. GENITAL ORGANS: No gross abnormality. LYMPH NODES: No greater than 1cm abdominal or pelvic lymph nodes areappreciated. AORTA: No significant abnormality. OSSEOUS STRUCTURES: Sclerotic metastatic disease again noted of the sternum there is subtle thoracic and lumbar segments as well as the sacrum. Compression fracture of T11 redemonstrated with bony retro pulsion unchanged. OTHER: No significant additional abnormality is seen. IMPRESSION: 1. Progressive pulmonary nodularity as discussed as well as enlarging masslike density right infrahil ar region. 2. Increasing infiltrative mass right hepatic lobe with adjacent satellite nodularity. 3. Stable sclerotic metastatic disease.
== END | disposition home or self-care (01) ==
LOC: RADCTMAIN 07:53
PROVIDERS: ATTEND Internal Medicine Hematology & Oncology
DX: C79.51 Secondary malignant neoplasm of bone (principal); C34.2 Malignant neoplasm of middle lobe, bronchus or lung; R16.0 Hepatomegaly, not elsewhere classified
CPT/HCPCS: 71250; 74176

== ENCOUNTER → 2020-03-28 | Outpatient (CLI) | payer BC ==
--- NOTE | 2020-03-28 14:36 | CT ---
EXAMINATION TYPE: CT ChestAbdPelvis wo con DATE OF EXAM: 03/28/2020 COMPARISON: Prior CT 12/31/2019 HISTORY: Lung cancer, bone mets CT DLP: 528.8 mGycm. Automated Exposure Control for Dose Reduction was Utilized. TECHNIQUE: CT scan of the thorax, abdomen and pelvis is performed without IV contrast. FINDINGS: Lack of intravenous contrast limits evaluation. LUNGS: The lungs are similar, too numerous to count lung nodules are again noted bilaterally, and the re is a large confluent area of abnormal soft tissue again noted within the right lower lobe extendin g from the right hilum. Index nodule in the left lower lobe measuring approximately 14 to 15 mm simil ar to prior. There has been interval slight increase in the small right pleural effusion. There is no pneumothorax seen. The tracheobronchial tree is patent. MEDIASTINUM: There are no greater than 1 cm hilar or mediastinal lymph nodes. No pericardial effusi on is seen. OTHER: No additional significant abnormality is seen. LIVER/GB: Area of low-attenuation within the posterior right lobe of the liver measures 10 cm in grea test transverse dimension similar to prior, patient is post cholecystectomy PANCREAS: No significant abnormality is seen. SPLEEN: No significant abnormality is seen. ADRENALS: No significant abnormality is seen. KIDNEYS: No significant abnormality is seen. BOWEL: No significant abnormality is seen. GENITAL ORGANS: No gross abnormality seen. LYMPH NODES: No greater than 1cm abdominal or pelvic lymph nodes are appreciated. OSSEOUS STRUCTURES: Diffuse sclerotic foci within the skeleton again noted consistent with bony metas tatic disease. OTHER: No significant additional abnormality is seen. IMPRESSION: There may be some slight interval increase in the pleural effusion on the right.
== END | disposition home or self-care (01) ==
LOC: RADCTMAIN 12:11
PROVIDERS: ATTEND Internal Medicine Hematology & Oncology
DX: C34.2 Malignant neoplasm of middle lobe, bronchus or lung (principal); C79.51 Secondary malignant neoplasm of bone; Z91.048 Other nonmedicinal substance allergy status
CPT/HCPCS: 71250; 74176

== ENCOUNTER → 2020-06-12 | Outpatient (CLI) | payer BC ==
--- NOTE | 2020-06-12 17:59 | CT ---
EXAMINATION TYPE: CT ChestAbdPelvis wo con DATE OF EXAM: 06/12/2020 INDICATION: lung CA with bone mets COMPARISON: 03/28/2020 CT DLP: 477.4 mGycm CONTRAST: Performed with Oral Contrast . No intravenous contrast. TECHNIQUE: Axial images at 5 mm thick sections. Reconstructed images in the coronal plane. Delayed images through the kidneys. FINDINGS: CT CHEST: Portion of the thyroid has limited visualization but visualized portions are unremarkable. There is extensive bilateral lung nodules. Spiculated mass is in the right infrahilar region. Minimal right pleural fluid may be present. No enlarged mediastinal or hilar adenopathy is evident. Scattered small lymph nodes are present in th e mediastinum. The ascending aorta diameter at the level of the main pulmonary artery is 3.5 cm. The main pulmonary artery diameter at the bifurcation is 3.3 cm. Coronary artery calcification is present. CT ABDOMEN: Liver: Hypodensity through the posterior aspect of the right lobe liver appear stable. Spleen: Normal Pancreas: Normal Adrenal glands: The adrenal glands are normal. Gallbladder: Not visualized. Kidneys: No masses are evident. No hydronephrosis is present. No cysts are present. No renal stone s are evident. Aorta: Vascular calcification is within the aorta. Inferior vena cava: Normal. CT PELVIS: Loops of bowel within the abdomen and pelvis are normal. There are loops of bowel which are incom pletely distended or lack oral contrast limiting their evaluation. Appendix: Normal as visualized. Urinary bladder: Normal. Genitourinary structures: Uterus is normal. Adnexal regions are clear. No free fluid is within the pe lvis. Osseous structures: Large sclerotic lesion is through the mid sacrum. There are small foci of scleros is within the ileum. Sclerotic lesions are within the lower lumbar spine. Sclerotic lesions are withi n the thoracic vertebral bodies. IMPRESSIONS: 1. Right infrahilar mass. 2. Multiple bilateral lung nodules. 3. Stable appearing hypodensity posterior right lobe liver. 4. Multiple metastatic lesions within the osseous structures.
== END | disposition home or self-care (01) ==
LOC: RADCTMAIN 10:43
PROVIDERS: ATTEND Internal Medicine Hematology & Oncology
DX: R91.8 Other nonspecific abnormal finding of lung field (principal); R93.2 Abnormal findings on diagnostic imaging of liver and biliary tract; C79.51 Secondary malignant neoplasm of bone; C34.2 Malignant neoplasm of middle lobe, bronchus or lung; Z91.041 Radiographic dye allergy status
CPT/HCPCS: 71250; 74176

== ENCOUNTER → 2020-08-19 | Outpatient (CLI) | payer BC ==
--- NOTE | 2020-08-19 13:53 | CT ---
EXAMINATION TYPE: CT ChestAbdPelvis wo con DATE OF EXAM: 08/19/2020 COMPARISON: 06/12/2020 HISTORY: Lung cancer CT DLP: 1128mGycm Unenhanced CT of the Chest, Abdomen and Pelvis Unenhanced CT of the chest ,abdomen and pelvis is performed. The lack of intravenous contrast limits evaluation of the solid and hollow viscera. Oral contrast: Yes CT Chest: LUNGS: Right infrahilar mass is redemonstrated and appears unchanged with current measurement of 3.8 x 2.8cm. There is associated pleural thickening. Redemonstrated are innumerable small pulmonary nodul es scattered throughout both lung bright all measuring less than 7 mm in size. MEDIASTINUM: Thoracic aorta is of normal caliber. The heart is not enlarged. No evidence for medi astinal mass or adenopathy. HILAR STRUCTURES: No evidence for mass. No hilar adenopathy is appreciated. OTHER: No significant abnormality. CONTRAST CT ABDOMEN AND PELVIS: LIVER/GB: No calcified gallstones. Hypoattenuating mass right hepatic lobe posterior segment is red emonstrated with small component within the caudate lobe. Overall no change appreciated. Biliary tree is of normal caliber. PANCREAS: No inflammation. No distinct mass. SPLEEN: No splenic enlargement. No lesion seen. ADRENALS: No nodule. No thickening. KIDNEYS/BLADDER: No hydronephrosis. No nephrolithiasis. No disctinct renal mass. BOWEL: Normal appendix. Normal bowel caliber. No inflammation. GENITAL ORGANS: No gross abnormality. LYMPH NODES: No greater than 1cm abdominal or pelvic lymph nodes are appreciated. AORTA: No significant abnormality. OSSEOUS STRUCTURES: Sclerotic metastatic disease is again demonstrated throughout the visualized axia l skeleton. OTHER: No significant additional abnormality is seen. IMPRESSION: 1. Essentially stable examination with the right infrahilar mass redemonstrated as well as innumerabl e pulmonary nodules. 2. Infiltrative mass posterior segment right hepatic lobe is essentially stable as well. 3. Blastic bony metastases without significant change appreciated.
== END | disposition home or self-care (01) ==
LOC: RADCTMAIN 12:57
PROVIDERS: ATTEND Internal Medicine Hematology & Oncology
DX: R91.8 Other nonspecific abnormal finding of lung field (principal); R16.0 Hepatomegaly, not elsewhere classified; C79.51 Secondary malignant neoplasm of bone; C34.2 Malignant neoplasm of middle lobe, bronchus or lung; Z91.041 Radiographic dye allergy status
CPT/HCPCS: 71250; 74176

== ENCOUNTER → 2020-10-22 | Outpatient (CLI) | payer BC ==
--- NOTE | 2020-10-22 22:17 | CT ---
EXAMINATION TYPE: CT ChestAbdPelvis wo con DATE OF EXAM: 10/22/2020 INDICATION: Carcinoma of lung. COMPARISON: 08/19/2020 CT DLP: 537.4 mGycm CONTRAST: Performed with Oral Contrast TECHNIQUE: Axial images at 5 mm thick sections. Reconstructed images in the coronal plane. Delayed images through the kidneys. FINDINGS: CT CHEST: Extensive pulmonary nodularity is present throughout the bilateral lung bright. 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 No dules are too numerous to count. The right infrahilar mass currently has maximum dimensions of 6.2 x 5.6 cm. Previous measurements of 3.8 x 2.8 cm. There is a 1.0 cm nodule within the pretracheal space. The ascending aorta diameter at the level of the main pulmonary artery is 3.4 cm. The main pulmonary artery diameter at the bifurcation is 8.[address] ABDOMEN: Liver: There is ill-defined hypodensity through the posterior right lobe liver present previously Spleen: Normal Pancreas: Normal Adrenal glands: The adrenal glands are normal. Gallbladder: Normal Kidneys: No masses are evident. No hydronephrosis is present. No cysts are present. No renal stone s are identified. Aorta: Vascular calcification is within the aorta. Inferior vena cava: Normal. CT PELVIS: There is scattered diverticuli through the colon. No inflammatory changes are adjacent to suggest acu te diverticulitis. There loops of bowel lacking oral contrast or limited distention limiting their ev aluation. Appendix: Normal as visualized. Urinary bladder: Normal. Genitourinary structures: Uterus appears normal. Adnexal regions are clear. No free fluid is within t he pelvis. Osseous structures: Large sclerotic areas within the sacrum. Additional smaller sclerotic lesions are adjacent to the left sacroiliac joint sclerotic lesions are within the lumbar spine including L4 scl erotic lesions are within T11 T9 and T5 IMPRESSIONS: 1. Extensive increased number and size of pulmonary nodules. The right hilar mass has increased in si ze. 2. 1 cm enlarged pretracheal lymph node. 3. Multiple sclerotic lesions within the axial spine and sacrum stable from comparison.
== END | disposition home or self-care (01) ==
LOC: RADCTMAIN 13:55
PROVIDERS: ATTEND Internal Medicine Hematology & Oncology
DX: C34.91 Malignant neoplasm of unspecified part of right bronchus or lung (principal); R91.8 Other nonspecific abnormal finding of lung field; R59.0 Localized enlarged lymph nodes; M89.8X0 Other specified disorders of bone, multiple sites
CPT/HCPCS: 71250; 74176